=== PATIENT | female | born 1985 | race Two or more races ===

== ENCOUNTER 2017-07-20 14:14 | Emergency (ER) | payer OTHER ==
[~2017-07-20] VITALS: Ht 172.7 cm; Wt 65.3 kg
[~2017-07-20 14:14] MED LIST: FOLIC ACID1 MG PO; PRENATAL CAPLE1 EACH PO
== END 2017-07-20 20:41 | disposition home or self-care (01) ==
LOC: ER 14:14
DX: B34.9 Viral infection, unspecified (principal)

== ENCOUNTER 2018-03-11 12:00 | Day surgery (SDC) | payer OTHER | END 2018-03-11 20:20 | disposition home or self-care (01) | LOC: CIR.AMB 12:00 | DX: O02.1 Missed abortion (principal); Z3A.01 Less than 8 weeks gestation of pregnancy ==

== ENCOUNTER 2020-01-15 12:15 | Inpatient (IN) | payer OTHER ==
[~2020-01-15] VITALS: Ht 165.1 cm; Wt 3.6 kg
[2020-02-03] MEDS ORDERED: KETO10TA2 PO (10:37)
[2020-02-03] MEDS ORDERED: OXYC1TAB9 PO (10:37)
== END 2020-02-03 11:18 | disposition home or self-care (01) | DRG 788 ==
LOC: SURG-SUITE 01-31 06:42 → LDR 01-31 06:42 → SURG-SUITE 01-31 21:44 → OB/GYN 02-03 12:15
PROVIDERS: ADMIT Obstetrics & Gynecology; ATTEND Obstetrics & Gynecology
PROC: 4A1HXFZ Monitoring of Products of Conception, Cardiac Rhythm, External Approach (ICD-10-PCS; 2020-01-31)
PROC: 3E033VJ Introduction of Other Hormone into Peripheral Vein, Percutaneous Approach (ICD-10-PCS; 2020-01-31)
PROC: 10D00Z1 Extraction of Products of Conception, Low, Open Approach (ICD-10-PCS; principal; 2020-01-31 19:00)
DX: O62.1 Secondary uterine inertia (principal); Z3A.39 39 weeks gestation of pregnancy; Z37.0 Single live birth; Z20.828 Contact with and (suspected) exposure to other viral communicable diseases